=== PATIENT | female | born 1980 ===

== ENCOUNTER 2017-10-13 14:56 | Emergency (ER) | payer OTHER ==
[2017-10-13 15:10] VITALS: BP 138/76; RESP 19; TEMP 98.2; O2SAT 99
[2017-10-13] MEDS ORDERED: Morphine 4 MG/ML VIAL IVP ONE (15:33)
--- NOTE | 2017-10-13 15:52 | ED PDOC ---
HPI: Chest Pain Time Seen by Provider: 10/13/17 15:16 Chief Complaint (Nursing): Back Pain Chief Complaint (Provider): Chest Pain, Back Pain History Per: Patient History/Exam Limitations: no limitations Onset/Duration Of Symptoms: Hrs (x 8) Current Symptoms Are (Timing): Still Present Additional Complaint(s): Gwendolyn Blood is a 37 year old female with a past medical history of hypertension , who presents to the ER complaining of upper back pain and chest pain, onset at 8AM this morning. Pain is associated with some difficulty breathing, and is constant. Patient reports taking her blood pressure medications daily, as instructed. Also took Advil with some relief of symptoms. She states chest pain is not exertional, but worsens with head or neck movement. Denies any associated palpitations, dizziness, syncope, headache, vomiting, leg swelling, weakness, numbness, or other radiation of pain. PMD: Dr. Maik Francis Past Medical History Reviewed: Historical Data, Nursing Documentation, Vital Signs Vital Signs: Last Vital Signs Temp 98.2 F 10/13/17 15:08 Pulse 73 10/13/17 20:46 Resp 19 10/13/17 15:08 BP 138/76 10/13/17 15:08 Pulse Ox 99 10/13/17 20:46 - Medical History PMH: HTN - Surgical History Surgical History: - Family History Family History: States: Hypertension - Allergies Allergies/Adverse Reactions: Allergies Allergy/AdvReac Type Severity Reaction Status Date / Time No Known Allergies Allergy Verified 10/13/17 15:07 PAMELA Risk Score for UA/NSTEMI - PAMELA Risk Score Age > 64: NO 3 or more CAD Risk Factors: NO Known CAD (Stenosis greater than 50%): NO Aspirin use in past 7 days: NO Severe Angina: NO EKG ST changes greater than 0.5mm: NO Positive Cardiac Marker: NO PAMELA Score: 0 Risk %: 5% Curb-65 Severity Score - CURB-65 Severity Score Confusion: No Respiratory Rate greater than/equal to 30: No Systolic BP <90 or Diastolic BP less than/equal 60mmHg: No Age >64: No Curb-65 Score: 0 Percentage 30-day mortality: 0.6% Wells Criteria for PE - Wells Criteria for Pulmonary Embolism Clinical Signs and Symptoms of DVT: No P.E is #1 Diagnosis, or Equally Likely: No Heart Rate >100: No Immobilization at least 3 days;Surgery previous 4 weeks: No Previous, objectively diagnosed PE or DVT: No Hemoptysis: No Malignancy w/treatment within 6 months, or palliative: No Total Score: 0 Review of Systems ROS Statement: Except As Marked, All Systems Reviewed And Found Negative Cardiovascular: Positive for: Chest Pain. Negative for: Palpitations Gastrointestinal: Negative for: Nausea, Vomiting Musculoskeletal: Positive for: Back Pain (upper). Negative for: Other (leg swelling) Neurological: Negative for: Weakness, Numbness, Headache, Dizziness, Other ( Syncope) Physical Exam - Reviewed Nursing Documentation Reviewed: Yes Vital Signs Reviewed: Yes - Physical Exam Appears: Positive for: Non-toxic, No Acute Distress Head Exam: Positive for: ATRAUMATIC, NORMAL INSPECTION, NORMOCEPHALIC Skin: Positive for: Normal Color, Warm, Dry Eye Exam: Positive for: EOMI, Normal appearance, PERRL Neck: Positive for: Normal, Supple Cardiovascular/Chest: Positive for: Regular Rate, Rhythm. Negative for: Murmur Respiratory: Positive for: Normal Breath Sounds. Negative for: Accessory Muscle Use, Respiratory Distress Gastrointestinal/Abdominal: Positive for: Normal Exam, Soft. Negative for: Tenderness Back: Positive for: Other (Bilateral paraspinal tenderness at upper thoracic region; No paralumbar tenderness) Extremity: Positive for: Normal ROM. Negative for: Pedal Edema, Calf Tenderness , Deformity Neurologic/Psych: Positive for: Alert, Oriented. Negative for: Motor/Sensory Deficits - Laboratory Results Result Diagrams: 10/13/17 15:50 10/13/17 15:50 - ECG ECG: Positive for: Interpreted By Me, Viewed By Me ECG Rhythm: Positive for: Normal QRS, Normal ST Segment, Sinus Rhythm. Negative for: ST/T Changes Rate: 73 O2 Sat by Pulse Oximetry: 99 (RA) Pulse Ox Interpretation: Normal - Progress Re-evaluation Time: 20:40 Condition: Re-examined, Improved Medical Decision Making Medical Decision Making: Initial Impression: Chest Pain, Upper Back Pain Differentials include but are not limited to: acute coronary syndrome, thoracic aortic dissection, pneumothorax, musculoskeletal pain, or cervical radiculopathy. Time: 15:31 Initial Plan: --EKG --CT Dissection Study --BMP --Troponin I --CBC w/ differential --PTT --Prothrombin time --Urine test --Urine dipstick --Chest X-ray --Morphine 4 mg IVP --Reevaluation Time: 19:39 Chest X-ray FINDINGS: LUNGS: No active pulmonary disease. Note is made right greater than left hilar granulomata or lymph node calcifications. PLEURA: No significant pleural effusion identified, no pneumothorax apparent. CARDIOVASCULAR: Cardiac silhouette appears prominent which is likely a function of technical magnification. Clinically correlate nevertheless. No pulmonary vascular derangement identified at this time. OSSEOUS STRUCTURES: No significant abnormalities. VISUALIZED UPPER ABDOMEN: Normal. OTHER FINDINGS: None. IMPRESSION: No acute infiltrate. Likely technical magnification of the cardiac silhouette. Clinically correlate further. No pulmonary vascular derangement. CT Dissection: FINDINGS: VASCULATURE: Aorta: No dissection. No aneurysm. Celiac trunk and mesenteric arteries: No occlusion or significant stenosis. Renal arteries: No occlusion or significant stenosis. Iliac arteries: No occlusion or significant stenosis. ABDOMEN: Liver: No mass. Gallbladder and bile ducts: No calcified stones. No ductal dilation. Pancreas: No ductal dilation. No mass. Spleen: No splenomegaly. Adrenals: No mass. Kidneys and ureters: Mild scarring of right kidney. Too small to characterize lesion within LEFT kidney. No hydronephrosis. Stomach and bowel: Segmental areas of probable underdistention of colon. No definite mural thickening. No obstruction. Appendix: Appendectomy. PELVIS: Bladder: Unremarkable. No mass. Reproductive: 1.5 x 1.6 by 1.5 cm peripherally enhancing hypodensity with crenulated margins within RIGHT ovary. ABDOMEN and PELVIS: Intraperitoneal space: Small free fluid within pelvis. No free air. Bones/joints: Probable bone islands. No acute fracture. Soft tissues: Unremarkable. Lymph nodes: No pathologically enlarged lymph nodes. IMPRESSION: 1. No aortic dissection. 2. Involuting or ruptured RIGHT ovarian follicle/cyst. 3. Incidental/non-acute findings are described above. Thank you for allowing us to participate in the care of your patient. Dictated and Authenticated by: Jeremiah Guevara MD 10/13/2017 7:39 PM Eastern Time ([place] & [place]) Scribe Attestation: Documented by Margarita Sagastume, acting as a scribe for Thai Martinez MD Provider Scribe Attestation: All medical record entries made by the Scribe were at my direction and personally dictated by me. I have reviewed the chart and agree that the record accurately reflects my personal performance of the history, physical exam, medical decision making, and the department course for this patient. I have also personally directed, reviewed, and agree with the discharge instructions and disposition. Disposition - Clinical Impression Clinical Impression: Back pain, Chest pain - Patient ED Disposition Is Patient to be Admitted: No Doctor Will See Patient In The: Office Counseled Patient/Family Regarding: Studies Performed, Diagnosis, Need For Followup - Disposition Referrals: formerly [facility] [Outside] Disposition: Routine/Home Disposition Time: 20:45 Condition: GOOD Additional Instructions: Take advil for pain. Return for worsening. Follow up with your PCP in 2-3 days. Instructions: Chest Pain (ED)
[2017-10-13 16:03] LABS: BASO # 0.1 K/uL (0.0-0.2); BASO % 0.7 % (0.0-2.0); EOS # 0.1 K/uL (0.0-0.7); EOS % 1.2 % (0.0-4.0); HEMOGLOBIN 14.1 g/dL (12.0-16.0); LYMPH % 27.1 % (20.0-40.0); MEAN CELL VOLUME 88.1 fl (81.0-99.0); MEAN CORPUSCULAR HEMOGLOBIN 29.6 pg (27.0-31.0); MEAN CORPUSCULAR HGB CONC 33.6 g/dL (33.0-37.0); MEAN PLATELET VOLUME 8.2 fl (7.2-11.7); MONO # 0.9 K/uL (0.0-0.8); MONO % 8.3 % (0.0-10.0); NEUT # 6.9 K/uL (1.8-7.0); NEUT % 62.7 % (50.0-75.0); NRBC % 0.1 % (0.0-0.0); RBC 4.76 Mil/uL (3.80-5.20); RED CELL DISTRIBUTION WIDTH 14.8 % (11.5-14.5)
[2017-10-13 16:04] VITALS: PULSE 73
[2017-10-13 16:13] LABS: PARTIAL THROMBOPLASTIN TIME 30.5 Seconds (25.6-37.1); PROTHROMBIN TIME 11.2 Seconds (9.8-13.1)
[2017-10-13 16:14] LABS: CALCIUM 9.3 mg/dL (8.4-10.2); GFR AFRICAN-AMERICAN > 60; GFR NON-AFRICAN AMERICAN > 60
[2017-10-13 16:16] LABS: BLOOD UREA NITROGEN 15 mg/dl (7-17)
[2017-10-13] MEDS ORDERED: Iodixanol 320 MG/ML 100 ML BOTTLE IV ONE (16:22)
[2017-10-13] MEDS ORDERED: Sodium Chloride 0.9% 50 ML IV ONE (16:23)
[2017-10-13] MEDS ORDERED: Morphine 4 MG/ML VIAL ONE (16:56)
--- NOTE | 2017-10-13 19:39 | CT ---
EXAM: CT Chest With Intravenous Contrast CLINICAL HISTORY: 37 years old, female; Pain; Other: Generalized body pain HTN; Prior surgery; Surgery date: 6+ months; Surgery type: x1 2002; Patient HX: HTN obese; Additional info: Chest pain back pain TECHNIQUE: Axial computed tomography images of the chest with intravenous contrast during the arterial phase of enhancement. All CT scans at this facility use one or more dose reduction techniques, viz.: automated exposure control; ma/kV adjustment per patient size (including targeted exams where dose is matched to indication; i.e. head); or iterative reconstruction technique. Coronal and sagittal reformatted images were created and reviewed. CONTRAST: 98 mL of VISIPAQUE administered intravenously. COMPARISON: CT - 2009-12-23 19:03 FINDINGS: Limitations: Motion artifact - mild. Pulmonary arteries: No pulmonary embolism. Aorta: No dissection. No aneurysm. Lungs: No consolidation. Pleural space: No significant effusion. No pneumothorax. Heart: Borderline cardiomegaly. No significant pericardial effusion. Bones/joints: No acute fracture. Soft tissues: Unremarkable. Lymph nodes: Calcified hilar lymph nodes. IMPRESSION: 1. No aortic dissection. 2. Incidental/non-acute findings are described above. EXAM: CT Abdomen and Pelvis With Intravenous Contrast CLINICAL HISTORY: 37 years old, female; Pain; Other: Generalized body pain HTN; Prior surgery; Surgery date: 6+ months; Surgery type: x1 2002; Patient HX: HTN obese; Additional info: Chest pain back pain TECHNIQUE: Axial computed tomography images of the abdomen and pelvis with intravenous contrast during the arterial phase of enhancement. All CT scans at this facility use one or more dose reduction techniques, viz.: automated exposure control; ma/kV adjustment per patient size (including targeted exams where dose is matched to indication; i.e. head); or iterative reconstruction technique. Coronal and sagittal reformatted images were created and reviewed. CONTRAST: 98 mL of VISIPAQUE administered intravenously. COMPARISON: No relevant prior studies available. FINDINGS: VASCULATURE: Aorta: No dissection. No aneurysm. Celiac trunk and mesenteric arteries: No occlusion or significant stenosis. Renal arteries: No occlusion or significant stenosis. Iliac arteries: No occlusion or significant stenosis. ABDOMEN: Liver: No mass. Gallbladder and bile ducts: No calcified stones. No ductal dilation. Pancreas: No ductal dilation. No mass. Spleen: No splenomegaly. Adrenals: No mass. Kidneys and ureters: Mild scarring of right kidney. Too small to characterize lesion within LEFT kidney. No hydronephrosis. Stomach and bowel: Segmental areas of probable underdistention of colon. No definite mural thickening. No obstruction. Appendix: Appendectomy. PELVIS: Bladder: Unremarkable. No mass. Reproductive: 1.5 x 1.6 by 1.5 cm peripherally enhancing hypodensity with crenulated margins within RIGHT ovary. ABDOMEN and PELVIS: Intraperitoneal space: Small free fluid within pelvis. No free air. Bones/joints: Probable bone islands. No acute fracture. Soft tissues: Unremarkable. Lymph nodes: No pathologically enlarged lymph nodes. IMPRESSION: 1. No aortic dissection. 2. Involuting or ruptured RIGHT ovarian follicle/cyst. 3. Incidental/non-acute findings are described above.
--- NOTE | 2017-10-13 19:41 | RAD ---
HISTORY: chest pain COMPARISON: Chest radiographs 12/23/2009. FINDINGS: LUNGS: No active pulmonary disease. Note is made right greater than left hilar granulomata or lymph node calcifications. PLEURA: No significant pleural effusion identified, no pneumothorax apparent. CARDIOVASCULAR: Cardiac silhouette appears prominent which is likely a function of technical magnification. Clinically correlate nevertheless. No pulmonary vascular derangement identified at this time. OSSEOUS STRUCTURES: No significant abnormalities. VISUALIZED UPPER ABDOMEN: Normal. OTHER FINDINGS: None. IMPRESSION: No acute infiltrate. Likely technical magnification of the cardiac silhouette. Clinically correlate further. No pulmonary vascular derangement.
--- NOTE | 2017-10-14 17:22 | CARD ---
APPROVED REPORT EKG Measurement Heart [id number] [id number] [id number] <Conclusion> Normal sinus rhythm Normal ECG
== END 2017-10-13 20:55 | disposition home or self-care (01) ==
LOC: H.ER 14:56
DX: R07.89 Other chest pain (principal); E66.9 Obesity, unspecified; I10 Essential (primary) hypertension
CPT/HCPCS: 71045; 71275; 74175; 80048; 81025; 84484; 85025; 85610; 85730; 93005; 96374; 99282; J2270; Q9967

== ENCOUNTER 2018-08-16 01:54 | Emergency (ER) | payer OTHER ==
[2018-08-16 02:15] VITALS: RESP 16
[2018-08-16] MEDS ORDERED: Penicillin G Benzathine 1.2 Mill Unit/2 ml Syr IM STA (03:50)
--- NOTE | 2018-08-16 03:53 | ED PDOC ---
HPI: CCC, URI, Sore Throat Time Seen by Provider: 08/16/18 02:20 Chief Complaint (Nursing): ENT Problem Chief Complaint (Provider): Sore throat History Per: Patient History/Exam Limitations: no limitations Have you had recent travel within the past 21 days to any of the following countries: [place], [place], [place] or [place]?: No Onset/Duration Of Symptoms: Days Current Symptoms Are (Timing): Still Present Location Of Pain: Throat, Diffuse Myalgias, Headache Additional History Per: Patient Additional Complaint(s): 38yo female, comes to ER for evaluation of a sore throat for the past 2 days. Patient reports headache, bodyaches, and states she took Motrin for pain with no relief. She denies any fever and states she is able to tolerate food and liquid intake. No additional complaints. Past Medical History Reviewed: Historical Data, Nursing Documentation, Vital Signs Vital Signs: Last Vital Signs Temp 98.7 F 08/16/18 02:11 Pulse 97 H 08/16/18 02:11 Resp 16 08/16/18 02:11 BP 128/83 08/16/18 02:11 Pulse Ox 95 08/16/18 02:11 - Medical History PMH: HTN - Surgical History Surgical History: - Family History Family History: States: Hypertension - Allergies Allergies/Adverse Reactions: Allergies Allergy/AdvReac Type Severity Reaction Status Date / Time No Known Allergies Allergy Verified 10/13/17 15:07 Review of Systems ROS Statement: Except As Marked, All Systems Reviewed And Found Negative Constitutional: Positive for: Other (bodyaches). Negative for: Fever ENT: Positive for: Throat Pain Neurological: Positive for: Headache Physical Exam - Reviewed Nursing Documentation Reviewed: Yes Vital Signs Reviewed: Yes - Physical Exam Appears: Positive for: Non-toxic, No Acute Distress Head Exam: Positive for: ATRAUMATIC, NORMAL INSPECTION, NORMOCEPHALIC Skin: Positive for: Normal Color Eye Exam: Positive for: Normal appearance ENT: Positive for: Pharyngeal Erythema, Tonsillar Exudate, Tonsillar Swelling, Other (uvula midline) Neck: Positive for: Normal, Supple Cardiovascular/Chest: Positive for: Regular Rate, Rhythm Respiratory: Positive for: Normal Breath Sounds Neurologic/Psych: Positive for: Alert, Oriented. Negative for: Motor/Sensory Deficits - ECG O2 Sat by Pulse Oximetry: 95 (RA) Pulse Ox Interpretation: Normal Medical Decision Making Medical Decision Making: Impression: 38yo female with sore throat Plan: * ED Upreg * Decadron 10mg IM * Penicillin 1.2 million units IM Scribe Attestation: Documented by Page Castorena, acting as a scribe for COLTEN Kline. Provider Scribe Attestation: All medical record entries made by the Scribe were at my direction and personally dictated by me. I have reviewed the chart and agree that the record accurately reflects my personal performance of the history, physical exam, medical decision making, and the department course for this patient. I have also personally directed, reviewed, and agree with the discharge instructions and disposition. Disposition - Clinical Impression Clinical Impression: Streptococcal sore throat - Patient ED Disposition Is Patient to be Admitted: No Counseled Patient/Family Regarding: Diagnosis, Need For Followup - Disposition Referrals: [facility] [Outside] Disposition: Routine/Home Disposition Time: 04:03 Condition: STABLE Instructions: Strep Throat (DC) Forms: [facility] (Gambian) Print Language: KHMER
[2018-08-16 04:57] VITALS: BP 124/80; PULSE 81; TEMP 98.4; O2SAT 100
== END 2018-08-16 04:20 | disposition home or self-care (01) ==
LOC: H.ER 01:54
DX: J02.0 Streptococcal pharyngitis (principal); I10 Essential (primary) hypertension
CPT/HCPCS: 96372; 99282; J0561; J1100